=== PATIENT | female | born 1985 | race African-American/Black ===

== ENCOUNTER 2020-10-27 15:33 | Emergency (ER) | payer OTHER ==
[2020-10-27 15:57] VITALS: BP 118/77; PULSE 60; TEMP 98.1; BMI 19.3
[2020-10-27] MEDS ORDERED: IBUPROFEN 600 MG TABLET (FP) PO ONE ×2 (16:13→16:37)
== END 2020-10-27 17:03 | disposition home or self-care (01) ==
LOC: JERFT 15:33
DX: R51.9 Headache, unspecified (principal)
CPT/HCPCS: 99283-25

== ENCOUNTER 2021-05-26 09:28 | Emergency (ER) | payer OTHER ==
[2021-05-26 09:36] VITALS: BMI 25.8
[2021-05-26 09:41] VITALS: BP 117/76; PULSE 65; TEMP 97.2
== END 2021-05-26 13:07 | disposition home or self-care (01) ==
LOC: JERFT 09:28
DX: S16.1XXA Strain of muscle, fascia and tendon at neck level, initial encounter (principal); S39.012A Strain of muscle, fascia and tendon of lower back, initial encounter; V49.40XA Driver injured in collision with unspecified motor vehicles in traffic accident, initial encounter
CPT/HCPCS: 99281-25